=== PATIENT | male | born 1960 | race Caucasian/White ===

== ENCOUNTER 2017-11-02 22:50 | Day surgery (SDC) | payer BC ==
[2017-11-02] MEDS ORDERED: Ondansetron ODT 8 MG TAB ONE (23:16)
[2017-11-02] MEDS ORDERED: Morphine 10 MG/ML VIAL ONE (23:22)
--- NOTE | 2017-11-03 05:41 | CON ---
DATE OF CONSULTATION: 11/03/2017 REASON FOR CONSULTATION: Esophageal food bolus impaction. CONSULTING PHYSICIAN: Dr. Barcenas. HISTORY OF PRESENT ILLNESS: The patient is a 56-year-old male with past medical history of anxiety, bipolar disorder, ADHD, hepatitis A, B and C and GERD, presenting with complaints of dysphagia. He s tates that over the last 10 years he has been having intermittent bouts of dysphagia characterized as the sensation that food would intermittently get stuck at the level of the mid chest to xiphoid proc ess. This would then prompt him to force himself to vomit/purge and has been usually been able to re lieve the obstruction in this way. Prior to this episode, his symptoms have never lasted longer than say 3-4 hours and have been amenable to drinking fluids and vomiting; however, approximately last ni ght, he was eating a meal consisting of steak, corn on the cob, and potatoes; when he ate a piece of meat, that again felt a sensation that he got stuck in the distal lower chest and despite his efforts to relieve this obstruction including vomiting, drinking fluids, drinking carbonated beverages and b aking soda. He was not able to relieve the obstruction with increased chest pain associated with his obstruction and prompted him to seek healthcare assistance and was ultimately transferred here to [facility] for further evaluation. In addition to the dysphagia sensation of the food being stuck in the lower chest, he also endorses a pressure-like chest pain in the same spot as well as mi ld nausea; however, he denies any fevers, chills, abdominal pain, weight loss, diarrhea, constipation , or odynophagia prior to this episode. Of note, he has never undergone an EGD before. REVIEW OF SYSTEMS: A 10-category review of systems was obtained with all responses negative except f or the pertinent positives as listed in the HPI. PAST MEDICAL HISTORY: As per HPI. PAST SURGICAL HISTORY: Appendectomy, tonsillectomy. FAMILY HISTORY: Unknown. (The patient was adopted). SOCIAL HISTORY: Denies any tobacco use. Drinks one beer 2 times per month, but does endorse the use of marijuana with the most recent use being approximately 2 days ago. OUTPATIENT MEDICATIONS: [id number] migraine medication. ALLERGIES: CODEINE (increased nausea). PHYSICAL EXAMINATION: VITAL SIGNS: Temperature 98.2, pulse 94, blood pressure 148/88, respiratory rate 18, satting 97% on room air. GENERAL: The patient is lying in bed in no acute distress. Alert and oriented x4. NECK: Supple. No JVD noted. CARDIOVASCULAR: Tachycardic rate, but regular rhythm. No discernible murmurs, gallops, or rubs. PULMONARY: Clear to auscultation bilaterally with no discernible wheezes or rales. ABDOMEN: Normoactive bowel sounds, soft, nontender, nondistended. EXTREMITIES: No cyanosis, clubbing, or edema. LABORATORY DATA: No current studies are available for review. IMAGING DATA: No current GI imaging studies are available for review. ASSESSMENT AND PLAN: The patient is a 56-year-old male with past medical history of anxiety, bipolar disorder, ADHD, hepatitis A, B and C and GERD, presenting with acute onset of food bolus impaction. Esophageal food bolus impaction: The patient is presenting with a history of intermittent sensation of food getting stuck in the distal esophagus/lower chest that has been occurring for the last 10 yea rs. Normally this has been relieved by more conservative measures including drinking of fluid, drink ing of sodas, and frequent forcing himself to vomit/purge. Up until this point, symptoms have not la sted any longer than 3-4 hours; however, last night he experienced acute onset of the sensation that food was getting stuck after eating a piece of steak that has persisted to now (approximately 24 hour s), despite the measures he is taking before in the past. He is able to manage his own secretions cu rrently, but given his history and given the sensation that he is having, it is still strongly concer trena for an esophageal food bolus impaction. RECOMMENDATIONS: 1. We would plan for urgent EGD for evaluation of the distal esophagus and removal of the food bolus . 2. Further recommendations to follow urgent EGD. We will continue to follow. Please call with any questions.
--- NOTE | 2017-11-03 06:14 | OP ---
DATE OF PROCEDURE: 11/03/2017 PROCEDURE: Esophagogastroduodenoscopy with foreign body removal. INDICATION FOR PROCEDURE: Esophageal food bolus impaction. DESCRIPTION OF PROCEDURE: After the risks and benefits of the procedure were explained to the patien t including risks of bleeding, infection, perforation, reaction to anesthesia and/or pain, informed c onsent was obtained. The patient was then taken to the endoscopy suite where general anesthesia was administered with endotracheal tube intubation performed via anesthesia support. Once the adequate s edation had been achieved and endotracheal tube intubation had been performed, the standard gastrosco pe was then introduced into the mouth with intubation of the esophagus, stomach, and proximal small i ntestine with the findings listed below. The patient tolerated the procedure well with no immediate perioperative complications. FINDINGS: Esophagus: Normal appearing mucosa was seen in the proximal and mid esophagus; however, in the dista l esophagus, there was a large food bolus impacted on an esophageal stricture, applying gentle pressu re to the food bolus and attempts to advance it in the stomach were unsuccessful, so a Moralez Net was e mployed to snare the food bolus impaction and was then removed through the mouth. On multiple succes sive attempts, the food bolus was eventually retrieved with smaller bits of the food bolus then washe d into the stomach without difficulty. Upon visualization of the mucosa in the distal esophagus, ext ensive ulceration was seen from 40 cm to 33 cm in a linear fashion and occupying approximately 180 de grees of the esophageal lumen. The ulceration was extensive with significantly increased erythema an d minimal friability to the passage of the gastroscope, but no perforation was identified. A nonobst ructive esophageal ring was also seen at 39 cm past the incisors that was easily traversed with the s tandard gastroscope. This esophageal ring was not intervened upon due to the significant amount of u lceration and inflammation surrounding it and increased risk of perforation if this was attempted. T he diaphragmatic pinch was also seen at 43 cm while the GE junction was seen at approximately 40 cm p ast the incisors denoting a 3-cm hiatal hernia. Stomach: Upon entry into the stomach, there was a [id number]-fu-[id number] amount of dark black-colored flui d, coating most of the mucosal surfaces that was somewhat amenable to aggressive irrigation and sucti oning of the mucosa visualized. Normal appearing mucosa was seen in the gastric cardia, fundus, body , antrum, and incisura. There was no evidence of erosions, ulcerations, mass, lesions, or active/rec ent bleeding. Duodenum: There was also a [id number] amount of darker colored mucus and material within the p roximal small intestine that was amenable to aggressive irrigation and suction of the mucosa visualiz ed. There was no evidence of erosions, ulcerations, mass, lesions or active/recent bleeding in eithe r the duodenal or second portion of the duodenum. IMPRESSION: 1. A 3-cm hiatal hernia. 2. Nonobstructive esophageal ring was seen at 39 cm past the incisors. It was easily traversed with the standard gastroscope consistent with a Schatzki's ring. 3. Successful food bolus extraction via Moralez Net removal. 4. Extensive ulceration of the esophageal lumen extending from 40 cm to 33 cm, but without evidence of perforation. RECOMMENDATIONS: 1. We would place the patient on a liquid diet over the next 48 hours and continue that until seen i n GI clinic. 2. We will place patient on omeprazole 40 mg twice daily until seen in the GI clinic. 3. I advised the patient to adhere to diet and adequately chew his food in the future to avoid poten tial repeat episodes of food impaction. 4. Patient will need a repeat EGD in approximately 8 weeks for reevaluation of the esophageal mucosa and dilation of the distal esophageal stricture. 5. We would have the patient follow up in the GI clinic in 3-4 weeks for reevaluation of his dysphag ia and scheduling of the repeat EGD.
[2017-11-03] MEDS ORDERED: Succinylcholine Chloride 20 MG/ML 10 ml SYRINGE FS ONE (14:26)
[2017-11-03] MEDS ORDERED: PHENYLEPHRINE-NS 100 MCG/ML 10 ML SYRINGE ONE (14:26)
[2017-11-03] MEDS ORDERED: Ondansetron HCl/PF 4 MG/2 ML Vial ONE (14:26)
[2017-11-03] MEDS ORDERED: Glycopyrrolate 0.2 MG/ML 5 ML SYRINGE ONE (14:26)
[2017-11-03] MEDS ORDERED: Dexamethasone 20 MG/5 ML VIAL ONE (14:26)
[2017-11-03] MEDS ORDERED: PROPOFOL 200 MG/20 ML VIAL ONE (14:26)
== END 2017-11-03 ==
LOC: ERS 22:50 → SDC/OP 11-03 00:44
PROVIDERS: ATTEND Internal Medicine
PROC: 0DC38ZZ Extirpation of Matter from Lower Esophagus, Via Natural or Artificial Opening Endoscopic (ICD-10-PCS; principal; 2017-11-03)
DX: T18.128A Food in esophagus causing other injury, initial encounter (principal); K22.10 Ulcer of esophagus without bleeding; K22.2 Esophageal obstruction; K44.9 Diaphragmatic hernia without obstruction or gangrene; F41.9 Anxiety disorder, unspecified; F31.9 Bipolar disorder, unspecified; F90.9 Attention-deficit hyperactivity disorder, unspecified type; K21.9 Gastro-esophageal reflux disease without esophagitis; Z88.5 Allergy status to narcotic agent
CPT/HCPCS: 93005; 96374; J1100; J2270; J2405; J2704

== ENCOUNTER 2024-03-27 13:18 | Outpatient (CLI) | payer OTHER | END 2024-03-27 13:19 | disposition home or self-care (01) | LOC: ULT 13:18 | PROVIDERS: ATTEND Physician Assistant Medical | DX: K21.9 Gastro-esophageal reflux disease without esophagitis (principal); B18.2 Chronic viral hepatitis C; R79.89 Other specified abnormal findings of blood chemistry; K76.89 Other specified diseases of liver; K80.20 Calculus of gallbladder without cholecystitis without obstruction | CPT/HCPCS: 76705 ==

== ENCOUNTER 2024-04-24 13:32 | Outpatient (CLI) | payer BC | END 2024-04-24 13:33 | disposition home or self-care (01) | LOC: CT 13:32 | PROVIDERS: ATTEND Physician Assistant Medical | DX: K76.9 Liver disease, unspecified (principal); K74.60 Unspecified cirrhosis of liver; K76.89 Other specified diseases of liver; K80.20 Calculus of gallbladder without cholecystitis without obstruction | CPT/HCPCS: 36415; 74170; 82565 ==